=== PATIENT | male | born 1950 | race African-American/Black ===

== ENCOUNTER 2018-10-03 15:27 | Observation (INO) | payer OTHER ==
--- NOTE | 2018-10-03 15:49 | PN ---
Progress Note - Progress Note Date of Service: 10/03/18 Note: Patient presents to the ED with glucose level of 630 per [facility]. Patient states he has not been aware of elevated glucose levels but does admit he has been drinking more gingerale and urinating more frequently. Endorses some visual changes, but denies N/V. Denies any FRAZIER. Denies any weakness, abd pain, fevers, sweats or chills. Patient is on metformin and is unsure of his other medications. States he does not need to recall his medications but thinks he is medication compliant. Has not seen his PCP in 6 mos. Labs drawn today was for his 6 mos check up. He states otherwise he has felt well.
[2018-10-03 16:29] LABS: ABS Basophils 0.1 10^3/ul (0-0.2); ABS Eosinophils 0.3 10^3/ul (0-0.6); ABS Monocytes 0.6 10^3/ul (0-0.8); ABS Neutrophils 5.9 10^3/ul (1.5-7.7); Eosinophil % 3.1 %; Hematocrit 39 % (42-52); Hemoglobin 13.6 g/dL (14.0-18.0); Lymphocyte % 22.9 %; Mean Corpuscular HGB Conc 35 g/dL (31-36); Mean Corpuscular Hemoglobin 30 pg (27-31); Mean Corpuscular Volume 86 fL (80-94); Mean Platelet Volume 7.4 fL (7.4-10.4); Nucleated Red Blood Cells % 0.1; Platelet Count 317 10^3/uL (150-450); Red Blood Count 4.52 10^6 /uL (4.18-5.48); Red Cell Distribution Width 13 % (10-15); White Blood Count 8.9 10^3/uL (3.5-10.8)
[2018-10-03 16:47] LABS: Albumin 4.3 g/dL (3.2-5.2); Albumin/Globulin Ratio 1.3 (1-3); C Reactive Protein 9.89 mg/L (<8.01); Calcium 10.2 mg/dL (8.6-10.3); EGFR African American 43.8 (>60); EGFR Non-African American 36.2 (>60); Globulin 3.4 g/dL (2-4); Potassium 3.6 mmol/L (3.5-5.0); Total Bilirubin 0.6 mg/dL (0.2-1.0); Total Protein 7.7 g/dL (6.4-8.9)
[2018-10-03] MEDS ORDERED: NS 0.9% 1000 ML** 1,000 ML IV ONE ×2 (16:47)
[2018-10-03] MEDS ORDERED: Insulin REGULAR(*) 1 UNITS UNIT SUBCUT ONE (16:48)
--- NOTE | 2018-10-03 17:10 | ED ---
HPI Diabetic - HPI Summary HPI Summary: This patient is a 68 year old M presenting to [facility] with a chief complaint of high blood sugar since approx. 4 weeks ago. Pt reports feeling generally unwell , frequent urination, weight loss (about 25 lbs.) and dry mouth. In the waiting room his blood sugar was tested as 630. He has been borderline diabetic, and his previous highest blood sugar was 200. Pt has a PMHx of HTN, and aortic dissection (medically managed). Pt has no FHx of diabetes, but has FHx of HTN. Per triage, the patient rates the pain 2/10 in severity. - History Of Current Complaint Chief Complaint: EDDiabeticProb Time Seen by Provider: 10/03/18 16:24 Hx Obtained From: Patient Onset/Duration: Gradual Onset, Lasting Weeks, Still Present Timing: Weeks Severity Initially: Mild Severity Currently: Mild Aggravating: Nothing Alleviating: Nothing Associated Signs & Symptoms: Polyuria, Weight Loss - Allergies/Home Medications Allergies/Adverse Reactions: Allergies Allergy/AdvReac Type Severity Reaction Status Date / Time grass pollen Allergy Difficulty Verified 10/03/18 18:43 Breathing No Known Drug Allergies Allergy See Comment Verified 10/03/18 18:43 Home Medications: Home Medications Aspirin EC TAB* [Ecotrin EC Low Dose 81 MG*] 81 mg PO DAILY 10/03/18 [History Confirmed 10/03/18] Atorvastatin* [Lipitor*] 20 mg PO DAILY 10/03/18 [History Confirmed 10/03/18] Cholecalciferol TAB* [Vitamin D TAB*] 3,000 units PO DAILY 10/03/18 [History Confirmed 10/03/18] Labetalol TAB* [Trandate TAB*] 200 mg PO BID 10/03/18 [History Confirmed ] Levothyroxine TAB* [Synthroid TAB*] 50 mcg PO QAM 10/03/18 [History Confirmed ] Lisinopril/HCTZ 20/12.5(NF) [Zestoretic 20/12.5(NF)] 2 tab PO DAILY 10/03/18 [ History Confirmed 10/03/18] Metformin ER (NF) 500 mg PO DAILY 10/03/18 [History Confirmed 10/03/18] Sertraline* [Zoloft*] 50 mg PO DAILY 10/03/18 [History Confirmed 10/03/18] amLODIPine TAB* [Norvasc 5 mg TAB*] 10 mg PO DAILY 10/03/18 [History Confirmed 10/03/18] PMH/Surg Hx/FS Hx/Imm Hx Endocrine/Hematology History: Reports: Hx Diabetes - prediabetic Denies: Hx Thyroid Disease Cardiovascular History: Reports: Hx Hypertension Respiratory History: Denies: Hx Asthma, Hx Chronic Obstructive Pulmonary Disease (COPD) GI History: Denies: Hx Ulcer Sensory History: Denies: Hx Legally Blind Opthamlomology History: Denies: Hx Legally Blind EENT History: Denies: Hx Deafness Infectious Disease History: No Infectious Disease History: Denies: Hx Hepatitis, Hx Human Immunodeficiency Virus (HIV), Traveled Outside the [place] in Last 30 Days - Family History Known Family History: Positive: Hypertension Negative: Diabetes - Social History Alcohol Use: Rare Substance Use Type: Reports: None Smoking Status (MU): Never Smoked Tobacco Review of Systems Constitutional: Other - pos - weight loss, generally unwell ENT: Other - pos - dry mouth Positive: frequency All Other Systems Reviewed And Are Negative: Yes Physical Exam - Summary Physical Exam Summary: Constitutional: Well-developed, Well-nourished, Alert. (-) Distressed Skin: Warm, Dry HENT: Normocephalic; Atraumatic; Dry mucous membranes Eyes: Conjunctiva normal Neck: Musculoskeletal ROM normal neck. (-) JVD, (-) Stridor, (-) Nuchal rigidity Cardio: Rhythm regular, rate normal, Heart sounds normal; Intact distal pulses; Radial pulses are 2+ and symmetric. (-) Murmur Pulmonary/Chest wall: Effort normal. (-) Respiratory distress, (-) Wheezes, (-) Rales Abd: Soft, (-) tenderness, (-) Distension, (-) Guarding, (-) Rebound Musculoskeletal: (-) Edema Lymph: (-) Cervical adenopathy Neuro: Alert, Oriented x3 Psych: Mood and affect Normal Triage Information Reviewed: Yes Vital Signs On Initial Exam: Initial Vitals Temp Pulse Resp BP Pulse Ox 96.5 F 98 18 108/70 100 10/03/18 15:38 10/03/18 15:38 10/03/18 15:38 10/03/18 15:38 10/03/18 15:38 Vital Signs Reviewed: Yes Diagnostics - Vital Signs Vital Signs Temp Pulse Resp BP Pulse Ox 10/03/18 15:38 96.5 F 98 18 108/70 100 - Laboratory Lab Results: Lab Results 10/03/18 10/03/18 10/03/18 Range/Units 16:19 16:19 16:19 WBC 8.9 (3.5-10.8) 10^3/uL RBC 4.52 (4.18-5.48) 10^6 /uL Hgb 13.6 L (14.0-18.0) g/dL Hct 39 L (42-52) % MCV 86 (80-94) fL MCH 30 (27-31) pg MCHC 35 (31-36) g/dL RDW 13 (10-15) % Plt Count 317 (150-450) 10^3/uL MPV 7.4 (7.4-10.4) fL Neut % (Auto) 66.4 % Lymph % (Auto) 22.9 % Calloway % (Auto) 7.0 % Eos % (Auto) 3.1 % Baso % (Auto) 0.6 % Absolute Neuts (auto) 5.9 (1.5-7.7) 10^3/ul Absolute Lymphs (auto) 2.0 (1.0-4.8) 10^3/ul Absolute Monos (auto) 0.6 (0-0.8) 10^3/ul Absolute Eos (auto) 0.3 (0-0.6) 10^3/ul Absolute Basos (auto) 0.1 (0-0.2) 10^3/ul Absolute Nucleated RBC 0.0 10^3/ul Nucleated RBC % 0.1 VBG pH (7.32-7.43) VBG pCO2 (41-51) mmHg VBG pO2 (35-45) mmHg VBG HCO3 (24-28) mmol/L VBG O2 Saturation (70-80) % VBG Base Excess (0.0-4.0) mmol/L Sodium 125 L (135-145) mmol/L Potassium 3.6 (3.5-5.0) mmol/L Chloride 87 L (101-111) mmol/L Carbon Dioxide 23 (22-32) mmol/L Anion Gap 15 H (2-11) mmol/L BUN 28 H (6-24) mg/dL Creatinine 1.87 H (0.67-1.17) mg/dL Est GFR ( Amer) 43.8 (>60) Est GFR (Non-Af Amer) 36.2 (>60) BUN/Creatinine Ratio 15.0 (8-20) Glucose 593 H* (70-100) mg/dL Lactic Acid 1.3 (0.5-2.0) mmol/L Calcium 10.2 (8.6-10.3) mg/dL Magnesium 2.0 (1.9-2.7) mg/dL Total Bilirubin 0.60 (0.2-1.0) mg/dL AST 14 (13-39) U/L ALT 8 (7-52) U/L Alkaline Phosphatase 135 H (34-104) U/L C-Reactive Protein 9.89 H (<8.01) mg/L Total Protein 7.7 (6.4-8.9) g/dL Albumin 4.3 (3.2-5.2) g/dL Globulin 3.4 (2-4) g/dL Albumin/Globulin Ratio 1.3 (1-3) /02/09 Range/Units 16:19 WBC (3.5-10.8) 10^3/uL RBC (4.18-5.48) 10^6 /uL Hgb (14.0-18.0) g/dL Hct (42-52) % MCV (80-94) fL MCH (27-31) pg MCHC (31-36) g/dL RDW (10-15) % Plt Count (150-450) 10^3/uL MPV (7.4-10.4) fL Neut % (Auto) % Lymph % (Auto) % Calloway % (Auto) % Eos % (Auto) % Baso % (Auto) % Absolute Neuts (auto) (1.5-7.7) 10^3/ul Absolute Lymphs (auto) (1.0-4.8) 10^3/ul Absolute Monos (auto) (0-0.8) 10^3/ul Absolute Eos (auto) (0-0.6) 10^3/ul Absolute Basos (auto) (0-0.2) 10^3/ul Absolute Nucleated RBC 10^3/ul Nucleated RBC % VBG pH 7.44 H (7.32-7.43) VBG pCO2 < 38 L (41-51) mmHg VBG pO2 36.0 (35-45) mmHg VBG HCO3 25.0 (24-28) mmol/L VBG O2 Saturation 71.4 (70-80) % VBG Base Excess 1.1 (0.0-4.0) mmol/L Sodium (135-145) mmol/L Potassium (3.5-5.0) mmol/L Chloride (101-111) mmol/L Carbon Dioxide (22-32) mmol/L Anion Gap (2-11) mmol/L BUN (6-24) mg/dL Creatinine (0.67-1.17) mg/dL Est GFR ( Amer) (>60) Est GFR (Non-Af Amer) (>60) BUN/Creatinine Ratio (8-20) Glucose (70-100) mg/dL Lactic Acid (0.5-2.0) mmol/L Calcium (8.6-10.3) mg/dL Magnesium (1.9-2.7) mg/dL Total Bilirubin (0.2-1.0) mg/dL AST (13-39) U/L ALT (7-52) U/L Alkaline Phosphatase (34-104) U/L C-Reactive Protein (<8.01) mg/L Total Protein (6.4-8.9) g/dL Albumin (3.2-5.2) g/dL Globulin (2-4) g/dL Albumin/Globulin Ratio (1-3) Result Diagrams: 10/03/18 16:19 10/03/18 19:36 Lab Statement: Any lab studies that have been ordered have been reviewed, and results considered in the medical decision making process. Re-Evaluation - Re-Evaluation First Eval Comment: Labs notable for pH is 7.4, gap of 15. Plan to give 2 L of fluid and 10 units of subcutaneous insulin Diabetic Course/Dx - Course Course Of Treatment: 68-year-old male with a history of prediabetes presents with elevated blood sugar. Blood sugar in the 600s, will workup for DKA. Give IV fluids. - Diagnoses Provider Diagnoses: Hyperglycemia - Physician Notifications Discussed Care Of Patient With: Reynold Schmid Time Discussed With Above Provider: 17:19 Instructed by Provider To: Other - Discussed case with Dr. Schmid, who accepts pt for admission. Discharge - Sign-Out/Discharge Documenting (check all that apply): Patient Departure - Admit Patient Received Moderate/Deep Sedation with Procedure: No - Discharge Plan Condition: Stable Disposition: ADMITTED TO [facility] - Billing Disposition and Condition Condition: STABLE Disposition: Admitted to [facility] - Attestation Statements Document Initiated by Scribe: Yes Documenting Scribe: Jennifer Hernandez Provider For Whom William is Documenting (Include Credential): Dr. Dana Beard MD Scribe Attestation: Jennifer Mae, scribed for Dr. Dana Beard MD on 10/03/18 at 2307. Scribe Documentation Reviewed: Yes Provider Attestation: The documentation as recorded by the scribe, Jennifer Hernandez accurately reflects the service I personally performed and the decisions made by me, Dr. Dana Beard MD Status of Scribe Document: Viewed
[2018-10-03 17:21] LABS: Urine Appearance Clear; Urine Bilirubin Negative (Negative); Urine Blood Negative (Negative); Urine Color Straw; Urine Glucose 3+(>=500 mg/dL) (Negative); Urine Ketones Trace (Negative); Urine Nitrite Negative (Negative); Urine Protein Negative (Negative); Urine Specific Gravity 1.021 (1.010-1.030); Urine Urobilinogen Negative (Negative)
[2018-10-03] MEDS ORDERED: Insulin REGULAR(*) 1 UNITS UNIT IV PUSH ONE (17:24)
[2018-10-03] MEDS ORDERED: Al Hydrox/Mg Hydrox/Simet LIQ* 30 ML UDC PO PRN (18:10)
[2018-10-03] MEDS ORDERED: Acetaminophen TAB* 325 MG PO PRN (18:10)
[2018-10-03] MEDS ORDERED: Dextrose 50% VIAL 50 ml IV PUSH PRN (18:19)
--- NOTE | 2018-10-03 19:58 | HP ---
CC: Pretty Cotton NP * HISTORY AND PHYSICAL: DATE OF ADMISSION: 10/03/18 PRIMARY CARE PROVIDER: Pretty Cotton NP, from [place] office. CHIEF COMPLAINT: "My sugar is high." HISTORY OF PRESENT ILLNESS: Octavio Cheema is a 68-year-old male with a history of thoracic aortic aneurysm with chronic dissection as well as recently diagnosed diabetes in the past 6 months as well as hypertension, who was seen at the [place] office today and it was noted that his sugars being between 500 and 600 and was sent to our hospital for evaluation. The patient stated that for the past several months he has been feeling weak and tired. He drank a lot of brendon shay and he was urinating a lot. He denies any visual problems. He stated that he was just started on metformin by his primary care provider approximately 6 months ago, but he has not followed up with his diabetes since then. He does not use diabetic diet and no carb diet, but he has noted that he lost several pounds of weight in the past several months. The patient's glucose level was 593 on arrival to the ED. He has acute kidney injury, and he has pseudohyponatremia due to his uncontrolled diabetes. He is going to be placed on overnight observation with a diagnosis of uncontrolled diabetes. PAST MEDICAL HISTORY: 1. Diabetes type 2, diagnosed 6 months ago. 2. History of hypertension. 3. History of thoracic aortic aneurysm with dissection, treated medically. The patient stated that it is "huge." 4. History of cardiac catheterization performed at one of the [place] hospitals in 2018. The patient, although is a poor historian, stated that he did not get any stents and he does not have a diagnosis of heart disease per se. MEDICATIONS: Include: 1. Aspirin 81 mg daily. 2. Amlodipine 10 mg daily. 3. Atorvastatin 20 mg daily. 4. Vitamin D3 3000 units daily. 5. Labetalol 200 mg b.i.d. 6. Levothyroxine 50 mcg q.a.m. 7. Lisinopril/hydrochlorothiazide 20/12.5 mg 2 tablets daily. 8. Zoloft 50 mg daily. 9. Metformin ER 500 mg daily. ALLERGIES: No known drug allergies. FAMILY HISTORY: Positive for mother dying of "old age" at the age of 97. Father dying of complications of diabetes in his 70s. SOCIAL HISTORY: The patient denies any tobacco or drug use. He drinks alcohol rarely. 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 His surrogate is his sister Serena Cheema, phone number is . The patient lives alone. He is independent with activities of daily living. REVIEW OF SYSTEMS: Please see history of present illness. All the remaining 12 systems were reviewed with the patient and were otherwise negative. PHYSICAL EXAMINATION GENERAL: The patient is a very pleasant 68-year-old male, who is in no acute distress. Alert, awake, and oriented x3. VITAL SIGNS: Blood pressure of 111/67, heart rate of 79 and regular, respiratory rate 15, oxygen saturation 95% on room air, temperature of 96.5. HEENT: Head: Atraumatic, normocephalic. Eyes: Pupils are equal, reactive to light and accommodation. Oropharynx is clear. Mucosa dry. NECK: Supple. No JVD. No bruits bilaterally. RESPIRATORY: Clear to auscultation bilaterally. CARDIOVASCULAR: Regular rate and rhythm. No murmur. ABDOMEN: Soft, nontender. Bowel sounds are present in all 4 quadrants. EXTREMITIES: There is no edema. Pulses are +2 bilaterally. No clubbing or cyanosis. NEUROLOGIC: Speech is clear. Cranial nerves II through XII grossly intact. Motor strength is 5/5 bilaterally. Please also note that despite the patient being pleasant and cooperative with the evaluation and oriented x3, the patient is a rather poor historian. LABORATORY DATA: Sodium of 125, potassium 3.6, chloride 87, carbon dioxide 23, BUN 28, creatinine 1.87. Liver function tests were unremarkable apart from slight elevation of alkaline phosphatase at 135. Lactic acid of 1.3. The patient's glucose was 593. White blood cell count of 8.9, hemoglobin of 13.6, hematocrit of 39, and platelets of 317. VBG shows pH 7.44, pCO2 of below 38, pO2 of 36. ASSESSMENT AND PLAN: 1. The patient has uncontrolled diabetes and is markedly dehydrated. He has pseudohyponatremia and acute kidney injury likely as a consequence of uncontrolled diabetes. The patient does not follow diabetic diet. He has not checked his sugars ever since he was placed on metformin. He is going to be placed on overnight observation. He already received a total of 2 L of intravenous fluids in the emergency department. He is going to be continued on intravenous hydration. He is going to be placed on insulin Lantus at 15 units daily as well as insulin sliding scale. I will place the patient on glyburide. I suspect the patient's creatinine will be much improved tomorrow morning and he may be able to be restarted on metformin. I will ask Nutrition to educate the patient on diabetic diet. We also should educate the patient about fingersticks and using the glucometer and I will ask nursing to do it. The patient would likely benefit from following up with Dr. Richards from Endocrinology in regards to diabetic management. 2. The patient has a history of thoracic aortic aneurysm and hypertension. His labetalol as well as his amlodipine is going to be continued. I will hold his Zestoretic due to his acute kidney injury. 3. For the patient's hypothyroidism, his Synthroid is going to be continued. We will check TSH. 4. For DVT prophylaxis, the patient is moderate risk and he is going to be placed on heparin subcutaneously. 5. The patient's code status is full. His surrogate is his sister. TIME SPENT: Approximately 65 minutes was spent on admission of this patient, more than half that time was spent [id number] with the patient during the interview and physical exam. [id number]/[facility] #: [id number] GAETANO
[2018-10-03 20:00] LABS: BUN/Creatinine Ratio 14.9 (8-20); Calcium 9.1 mg/dL (8.6-10.3); EGFR African American 52.1 (>60); Potassium 3.6 mmol/L (3.5-5.0)
[2018-10-03] MEDS ORDERED: Insulin GLARGINE(*) 1 UNITS UNIT SUBCUT SCH (20:00)
[2018-10-03] MEDS ORDERED: Insulin LISPRO* 1 UNITS UNIT SUBCUT ONE (20:20)
[2018-10-03] MEDS: NS 0.9% 1000 ML** 1,000 ML IV SCH (22:04)
[2018-10-03] MEDS: Docusate CAP* 100 MG PO SCH (22:25)
[2018-10-03] MEDS: Labetalol TAB* 200 MG PO SCH (22:25)
[2018-10-03] MEDS: glyBURIDE TAB* 2.5 MG PO SCH (22:26)
[2018-10-03] MEDS: Heparin VIAL(*) 5000 UNITS/ML VIAL (FIVE THOUSAND) SUBCUT SCH (22:31)
[2018-10-04] MEDS: Insulin LISPRO* 1 UNITS UNIT SUBCUT SCH ×3 (01:03→12:27)
[2018-10-04] MEDS ORDERED: Insulin LISPRO* 1 UNITS UNIT SUBCUT ONE (01:45)
[2018-10-04] MEDS ORDERED: Levothyroxine TAB* 50 MCG TAB PO SCH (06:00)
[2018-10-04] MEDS: Heparin VIAL(*) 5000 UNITS/ML VIAL (FIVE THOUSAND) SUBCUT SCH ×2 (06:24→12:36)
[2018-10-04] MEDS: NS 0.9% 1000 ML** 1,000 ML IV SCH (06:24)
[2018-10-04 06:36] LABS: ABS Eosinophils 0.2 10^3/ul (0-0.6); ABS Lymphocytes 1.8 10^3/ul (1.0-4.8); ABS Monocytes 0.4 10^3/ul (0-0.8); Eosinophil % 3.2 %; Hematocrit 38 % (42-52); Hemoglobin 12.5 g/dL (14.0-18.0); Lymphocyte % 33.6 %; Mean Corpuscular HGB Conc 34 g/dL (31-36); Mean Corpuscular Hemoglobin 30 pg (27-31); Mean Corpuscular Volume 91 fL (80-94); Mean Platelet Volume 7.3 fL (7.4-10.4); Nucleated Red Blood Cells % 0.1; Platelet Count 250 10^3/uL (150-450); Red Blood Count 4.14 10^6 /uL (4.18-5.48); Red Cell Distribution Width 13 % (10-15); White Blood Count 5.4 10^3/uL (3.5-10.8)
[2018-10-04 06:51] LABS: BUN/Creatinine Ratio 12.7 (8-20); Calcium 8.7 mg/dL (8.6-10.3); EGFR African American 60.2 (>60); EGFR Non-African American 49.7 (>60); Potassium 3.1 mmol/L (3.5-5.0)
[2018-10-04 08:03] LABS: TSH (Thyroid Stimulating Horm) 3.56 mcIU/mL (0.34-5.60)
[2018-10-04] MEDS ORDERED: Potassium Chlor TAB* 20 MEQ TAB.ER PO ONE (08:29)
[2018-10-04] MEDS ORDERED: metFORMIN* 500 MG TAB PO SCH (09:00)
[2018-10-04] MEDS ORDERED: Cholecalciferol TAB* 1000 UNITS PO SCH (09:00)
[2018-10-04] MEDS ORDERED: Atorvastatin* 20 MG TAB PO SCH (09:00)
[2018-10-04] MEDS ORDERED: METFORMIN 500 MG PO SCH (09:00)
[2018-10-04] MEDS ORDERED: Aspirin EC TAB* 81 MG TAB.EC PO SCH (09:00)
[2018-10-04] MEDS ORDERED: Sertraline* 50 MG TAB PO SCH (09:00)
[2018-10-04] MEDS: Docusate CAP* 100 MG PO SCH (09:50)
[2018-10-04] MEDS: Labetalol TAB* 200 MG PO SCH (09:50)
[2018-10-04] MEDS: glyBURIDE TAB* 2.5 MG PO SCH ×2 (09:52→17:39)
--- NOTE | 2018-10-04 15:04 | CONSULT ---
Consult Consult: [facility] Inpatient Consult Note Date of Consult: 10/04/18 Reason for Consult: recently-recognized TD2M Reason for Admission: [facility] ASSESSMENT: 68 yo M with acute, severe, insulin-deficient T2DM. The patient has crescendo diabetes/acute glucotoxicity. I suspect the replacement of polyuria losses with sugar-sweetened beverages caused the acute rise in blood glucose, but the problem started many months before. He should be started on basal/bolus at 0.5 units/kg/day with the medication regimen below at time of discharge. The patient will need hospital follow-up in 2-3 weeks and was invited to return to our clinic to see CDE (Lashay Núñez). Until then, he will need insulin prescriptions and diabetes testing supplies call in to a local pharmacy. PLAN: - INCREASE Lantus (glargine) 25 units in the evening - START Humalog/Admelog/Novolog 6 units with meals - ADD 2 units if blood glucose more than 200 - ADD 4 units if blood glucose more than 250 - ADD 6 units if blood glucose more than 300 - ADD 8 units if blood glucose more than 350 - ADD 10 units if blood glucose more than 400 - START Metformin ER 1000mg in the evening (at discharge) - STOP glyburide - follow-up endocrine or PCP ([facility] at [facility]) in 2 weeks SUBJECTIVE: History of Present Illness: 68 yo M with history of ASCVD (thoracic aortic dissection) and hypothyroidism, now admitted for acute, severe hypoglycemia. He was in his usual state of good health in the months leading up to admission, but began to note polyuria/polydipsia, weight loss, muscle weakness and lethargy in the past 4 weeks. To avoid dehydration, he was drinking Gatorade, brendon shay and water. He was diagnosed with T2DM sometime in the past year since his hospitalization for aortic dissection in early 2017. He was started on metformin and was noted to have A1c 7.2% in June 2018 at [facility] outreach clinic. He has no known complications of diabetes. Past Medical History: 1. HTN 2. TAA s/p dissection, managed medically 3. Dyslipidemia Medications Prior to Admission: Aspirin EC TAB* [Ecotrin EC Low Dose 81 MG*] 81 mg PO DAILY 10/03/18 [History Confirmed 10/03/18] Atorvastatin* [Lipitor*] 20 mg PO DAILY 10/03/18 [History Confirmed 10/03/18] Cholecalciferol TAB* [Vitamin D TAB*] 3,000 units PO DAILY 10/03/18 [History Confirmed 10/03/18] Labetalol TAB* [Trandate TAB*] 200 mg PO BID 10/03/18 [History Confirmed ] Levothyroxine TAB* [Synthroid TAB*] 50 mcg PO QAM 10/03/18 [History Confirmed ] Lisinopril/HCTZ 20/12.5(NF) [Zestoretic 20/12.5(NF)] 2 tab PO DAILY 10/03/18 [ History Confirmed 10/03/18] Metformin ER (NF) 500 mg PO DAILY 10/03/18 [History Confirmed 10/03/18] Sertraline* [Zoloft*] 50 mg PO DAILY 10/03/18 [History Confirmed 10/03/18] amLODIPine TAB* [Norvasc 5 mg TAB*] 10 mg PO DAILY 10/03/18 [History Confirmed 10/03/18] Inpatient Medications: Acetaminophen (Tylenol Tab*) 650 mg PO Q4H PRN PRN Reason: MILD PAIN or TEMP > 100.4 Al Hydrox/Mg Hydrox/Simethicone (Maalox Plus*) 30 ml PO Q6H PRN PRN Reason: INDIGESTION Aspirin (Aspirin Ec Tab*) 81 mg PO DAILY [facility] Last Admin: 10/04/18 09:50 Dose: 81 mg Atorvastatin Calcium (Lipitor*) 20 mg PO DAILY [facility] Last Admin: 10/04/18 09:50 Dose: 20 mg Cholecalciferol (Vitamin D Tab*) 3,000 units PO DAILY [facility] Last Admin: 10/04/18 09:50 Dose: 3,000 units Dextrose (Dextrose 50% Vial 50 Ml*) 25 ml IV PUSH .FOR FS < 60 - SS PRN PRN Reason: FS < 60 Docusate Sodium (Colace Cap*) 100 mg PO BID [facility] Last Admin: 10/04/18 09:50 Dose: 100 mg Glyburide (Diabeta Tab*) 2.5 mg PO BID WITH MEALS [facility] Last Admin: 10/04/18 09:52 Dose: 2.5 mg Heparin Sodium (Porcine) (Heparin Vial(*)) 5,000 units SUBCUT Q8HR [facility] Last Admin: 10/04/18 12:36 Dose: 5,000 units Sodium Chloride (Ns 0.9% 1000 Ml) 1,000 mls @ 125 mls/hr IV PER RATE [facility] Last Admin: 10/04/18 06:24 Dose: 125 mls/hr Insulin Glargine (Lantus(*)) 15 units SUBCUT Q24H [facility] Last Admin: 10/03/18 22:24 Dose: 15 units Insulin Human Lispro (Humalog*) 0 units SUBCUT ACHS [facility]; Protocol Last Admin: 10/04/18 12:27 Dose: 10 units Labetalol HCl (Trandate Tab*) 200 mg PO BID [facility] Last Admin: 10/04/18 09:50 Dose: 200 mg Levothyroxine Sodium (Synthroid Tab*) 50 mcg PO QAM@0600 [facility] Last Admin: 10/04/18 06:24 Dose: 50 mcg Metformin HCl (Glucophage*) 500 mg PO 0800,1700 [facility] Last Admin: 10/04/18 09:52 Dose: 500 mg Sertraline HCl (Zoloft*) 50 mg PO DAILY [facility] Last Admin: 10/04/18 09:51 Dose: 50 mg Allergies/Intolerances: NKDA Social History: Lives alone. Works at [employer] in [place]. Denies tobacco. Rare, responsible alcohol. Family History: Father with diabetes. Mother of natural causes at an advanced age. Review of Systems: As above. No recent illness or travel. OBJECTIVE: Temp Pulse Resp BP Pulse Ox 97.6 F 70 16 109/61 100 10/04/18 11:15 10/04/18 11:15 10/04/18 11:15 10/04/18 11:15 10/04/18 11:15 General: alert, pleasant, oriented, no distress ENT: neck supple, no thyromegaly, no bruit is heard Chest: CTAB, no wheezing or crackles CV: RRR, no murmur Abdomen: soft, non-tender Extremities: no edema, distal pulses intact Skin: warm, dry, no rash Neuro: grossly intact motor/sensory in extremities Psych: restricted affect, pleasant Labs: WBC 5.4 10^3/uL (3.5-10.8) 10/04/18 06:27 RBC 4.14 10^6 /uL (4.18-5.48) L 10/04/18 06:27 Hgb 12.5 g/dL (14.0-18.0) L 10/04/18 06:27 Hct 38 % (42-52) L 10/04/18 06:27 MCV 91 fL (80-94) 10/04/18 06:27 MCH 30 pg (27-31) 10/04/18 06:27 MCHC 34 g/dL (31-36) 10/04/18 06:27 RDW 13 % (10-15) 10/04/18 06:27 Plt Count 250 10^3/uL (150-450) 10/04/18 06:27 MPV 7.3 fL (7.4-10.4) L 10/04/18 06:27 Neut % (Auto) 55.2 % 10/04/18 06:27 Lymph % (Auto) 33.6 % 10/04/18 06:27 Cook % (Auto) 7.7 % 10/04/18 06:27 Eos % (Auto) 3.2 % 10/04/18 06:27 Baso % (Auto) 0.3 % 10/04/18 06:27 Absolute Neuts (auto) 3.0 10^3/ul (1.5-7.7) 10/04/18 06:27 Absolute Lymphs (auto) 1.8 10^3/ul (1.0-4.8) 10/04/18 06:27 Absolute Monos (auto) 0.4 10^3/ul (0-0.8) 10/04/18 06:27 Absolute Eos (auto) 0.2 10^3/ul (0-0.6) 10/04/18 06:27 Absolute Basos (auto) 0.0 10^3/ul (0-0.2) 10/04/18 06:27 Absolute Nucleated RBC 0.0 10^3/ul 10/04/18 06:27 Nucleated RBC % 0.1 10/04/18 06:27 VBG pH 7.44 (7.32-7.43) H 10/03/18 16:19 VBG pCO2 < 38 mmHg (41-51) L 10/03/18 16:19 VBG pO2 36.0 mmHg (35-45) 10/03/18 16:19 VBG HCO3 25.0 mmol/L (24-28) 10/03/18 16:19 VBG O2 Saturation 71.4 % (70-80) 10/03/18 16:19 VBG Base Excess 1.1 mmol/L (0.0-4.0) 10/03/18 16:19 Sodium 135 mmol/L (135-145) 10/04/18 06:27 Potassium 3.1 mmol/L (3.5-5.0) L 10/04/18 06:27 Chloride 103 mmol/L (101-111) 10/04/18 06:27 Carbon Dioxide 24 mmol/L (22-32) 10/04/18 06:27 Anion Gap 8 mmol/L (2-11) 10/04/18 06:27 BUN 18 mg/dL (6-24) 10/04/18 06:27 Creatinine 1.42 mg/dL (0.67-1.17) H 10/04/18 06:27 Est GFR ( Amer) 60.2 (>60) 10/04/18 06:27 Est GFR (Non-Af Amer) 49.7 (>60) 10/04/18 06:27 BUN/Creatinine Ratio 12.7 (8-20) 10/04/18 06:27 Glucose 209 mg/dL (70-100) H 10/04/18 06:27 POC Glucose (mg/dL) 374 mg/dL (70-100) H 10/04/18 12:03 Hemoglobin A1c 18.0 % (4.0-5.6) H 10/03/18 16:20 Lactic Acid 1.3 mmol/L (0.5-2.0) 10/03/18 16:19 Calcium 8.7 mg/dL (8.6-10.3) 10/04/18 06:27 Magnesium 2.0 mg/dL (1.9-2.7) 10/03/18 16:19 Total Bilirubin 0.60 mg/dL (0.2-1.0) 10/03/18 16:19 AST 14 U/L (13-39) 10/03/18 16:19 ALT 8 U/L (7-52) 10/03/18 16:19 Alkaline Phosphatase 135 U/L (34-104) H 10/03/18 16:19 C-Reactive Protein 9.89 mg/L (<8.01) H 10/03/18 16:19 Total Protein 7.7 g/dL (6.4-8.9) 10/03/18 16:19 Albumin 4.3 g/dL (3.2-5.2) 10/03/18 16:19 Globulin 3.4 g/dL (2-4) 10/03/18 16:19 Albumin/Globulin Ratio 1.3 (1-3) 10/03/18 16:19 TSH 3.56 mcIU/mL (0.34-5.60) 10/04/18 06:27 Urine Color Straw 10/03/18 17:05 Urine Appearance Clear 10/03/18 17:05 Urine pH 5.0 (5-9) 10/03/18 17:05 Ur Specific [place] 1.021 (1.010-1.030) 10/03/18 17:05 Urine Protein Negative (Negative) 10/03/18 17:05 Urine Ketones Trace (Negative) A 10/03/18 17:05 Urine Blood Negative (Negative) 10/03/18 17:05 Urine Nitrate Negative (Negative) 10/03/18 17:05 Urine Bilirubin Negative (Negative) 10/03/18 17:05 Urine Urobilinogen Negative (Negative) 10/03/18 17:05 Ur Leukocyte Esterase Negative (Negative) 10/03/18 17:05 Urine Glucose 3+(>=500 mg/dl) (Negative) A 10/03/18 17:05
[2018-10-04 17:06] VITALS: BP 123/63
[2018-10-04] MEDS ORDERED: Insulin GLARGINE(*) 1 UNITS UNIT SUBCUT ONE (18:06)
--- NOTE | 2018-10-04 20:18 | DS ---
CC: Pretty Cotton NP; Dr. Richards * DISCHARGE SUMMARY: DATE OF ADMISSION: 10/03/18 DATE OF DISCHARGE: 10/04/18 PRIMARY CARE PROVIDER: Pretty Cotton NP. ENDOCRINOLOGY: Dr. Richards. DISPOSITION AT DISCHARGE: Home. CONDITION AT DISCHARGE: Stable. DISCHARGE DIAGNOSES: 1. Uncontrolled diabetes. 2. Dehydration. 3. Acute kidney injury due to dehydration and uncontrolled diabetes. SECONDARY DIAGNOSES: 1. History of thoracic abdominal aneurysm. 2. History of hypertension. 3. Diabetes type 2, diagnosed 6 months ago. 4. History of questionable coronary artery disease. MEDICATIONS AT DISCHARGE: Include: 1. Amlodipine 10 mg daily. 2. Aspirin 81 mg daily. 3. Lipitor 20 mg daily. 4. Vitamin D3 at 3000 units daily. 5. Labetalol 200 mg b.i.d. 6. Synthroid 50 mcg daily. 7. Lisinopril/hydrochlorothiazide 20/12.5 two tablets daily. 8. Zoloft 50 mg daily. The new medications include: 1. Insulin glargine 25 units at bedtime. 2. Insulin lispro 6 units with each meal 3 times a day. 3. Metformin ER 1000 mg at bedtime. Discontinued/changed medication is metformin. CONSULTATIONS DURING THE HOSPITAL STAY: Included Dr. Richards from endocrinology. LABORATORY DATA AND STUDIES PERFORMED DURING THE HOSPITAL STAY: Include: The patient's hemoglobin A1c was noted to be 18.0. On 10/04/18, sodium of 135, potassium 3.1, chloride 103, carbon dioxide 24, BUN 18, creatinine 1.42. The patient's TSH was noted to be 3.56. On 10/04/18, white blood cell count of 5.4 , hemoglobin 12.5, hematocrit of 38, and platelets of 250. HOSPITALIZATION COURSE: Octavio Cheema is a 68-year-old male who was diagnosed with diabetes several months ago and he had not followed with his doctor until just within the past couple of days. He went to see his doctor. His sugar was noted to be 600 and he came into the ED for evaluation the same day. Here, he was noted to be dehydrated and slightly hyperosmolar, but not acidotic. He was noted to have acute kidney injury likely due to dehydration. The patient noted that he had polydipsia and he was drinking brendon shay to "fix it." He was not aware of diabetic diet. The patient was placed on overnight observation and rehydrated. He was educated about diabetic diet. Dr. Richards from Endocrinology saw him in consultation and recommended the patient to take insulin Lantus 25 units at bedtime and insulin Humalog 6 units with each meal. In addition to that, he will increase his metformin to 1000 mg at h.s. The patient also received diabetic education in regards to glucometer use and how to inject his insulin. By the time of discharge, he is ready to and able to inject his own insulin. He is going to be discharged tonight with recommendation to follow up with his primary care provider in approximately 1 to 3 days. The patient is also recommended to follow up with Dr. Richards's nurse practitioner in 2 to 3 weeks. PHYSICAL EXAM AT THE TIME OF DISCHARGE: Blood pressure of 109/61, heart rate of 70 and regular, respiratory rate 16, oxygen saturation 100% on room air, temperature of 97.6. General: The patient is a very pleasant 68-year-old male who is in no acute distress. Alert, awake, and oriented x3. HEENT: Head: Atraumatic, normocephalic. Eyes: Pupils are equal and reactive to light and accommodation. Oropharynx is clear. Mucosa moist. Neck: Supple. No JVD. No bruits bilaterally. Cardiovascular: Regular rate and rhythm. No murmur. Respiratory: Clear to auscultation bilaterally. Abdomen: Soft and nontender. Bowel sounds are present in all 4 quadrants. Lower Extremities: There is no edema. Pulses are +2 bilaterally. No clubbing or cyanosis. On neuro evaluation, speech clear. Cranial nerves II through XII grossly intact. Motor strength is 5/5 bilaterally. Please note that this is a short summary of the patient's hospitalization. Please refer to further medical records for details. TIME SPENT: Approximately 35 minutes were spent on the patient's discharge. [id number]/[facility] #: [id number] MTDD
== END 2018-10-04 19:20 | disposition home or self-care (01) ==
LOC: ED 15:27 → MED 18:10
PROVIDERS: ADMIT Internal Medicine; ATTEND Internal Medicine
DX: E11.65 Type 2 diabetes mellitus with hyperglycemia (principal); E86.0 Dehydration; N17.9 Acute kidney failure, unspecified; Z86.79 Personal history of other diseases of the circulatory system; I10 Essential (primary) hypertension; Z79.82 Long term (current) use of aspirin; Z79.899 Other long term (current) drug therapy
CPT/HCPCS: 36415; 80048; 80053; 81003; 82803; 83036; 83605; 83735; 84443; 85025; 86140; 90471; 96360; 96361; 96372; 99285; A9270-GY; G0010; J1644